=== PATIENT | female | born 1985 | race Caucasian/White ===

== ENCOUNTER 2021-12-05 11:11 | Emergency (ER) | payer OTHER ==
[~2021-12-05] VITALS: Ht 154.9 cm; Wt 82.4 kg
[2021-12-05 11:32] LABS: BASOPHILS # (AUTO) 0.1 10^3/uL (0.0-0.1); BASOPHILS % (AUTO) 0 % (0-10); EOSINOPHILS # (AUTO) 0.3 10^3/uL (0.0-0.3); EOSINOPHILS % (AUTO) 3 % (0-10); HEMATOCRIT 43 % (35-52); HEMOGLOBIN 14.5 g/dL (11.5-16.0); LYMPHOCYTES # (AUTO) 3.4 10^3/uL (1.0-4.0); LYMPHOCYTES % (AUTO) 26 % (12-44); MEAN CORPUSCULAR HEMOGLOBIN 29 pg (25-34); MEAN CORPUSCULAR HGB CONC 34 g/dL (32-36); MEAN CORPUSCULAR VOLUME 86 fL (80-99); MONOCYTES # (AUTO) 0.5 10^3/uL (0.0-1.0); MONOCYTES % (AUTO) 4 % (0-12); NEUTROPHILS # (AUTO) 8.5 10^3/uL (1.8-7.8); NEUTROPHILS % (AUTO) 66 % (42-75); PLATELET COUNT 351 10^3/uL (130-400); WHITE BLOOD COUNT 12.8 10^3/uL (4.3-11.0)
[2021-12-05 11:38] LABS: BILIRUBIN,URINE NEGATIVE (NEGATIVE); CLARITY,URINE SL CLOUDY; COLOR,URINE YELLOW; GLUCOSE, URINE (UA) NEGATIVE (NEGATIVE); KETONES,URINE NEGATIVE (NEGATIVE); LEUKOCYTE ESTERASE ,URINE NEGATIVE (NEGATIVE); NITRITE,URINE NEGATIVE (NEGATIVE); PROTEIN,URINE NEGATIVE (NEGATIVE)
[2021-12-05 11:50] LABS: BACTERIA,URINE FEW /HPF; RBC,URINE >100 /HPF
[2021-12-05 12:05] LABS: ALANINE AMINOTRANSFERASE 24 U/L (0-55); ALBUMIN 4.8 GM/DL (3.2-4.5); ALKALINE PHOSPHATASE 68 U/L (40-136); BILIRUBIN,TOTAL 0.3 MG/DL (0.1-1.0); BUN/CREATININE RATIO 22; CALCIUM 9.9 MG/DL (8.5-10.1); CARBON DIOXIDE 23 MMOL/L (21-32); CHLORIDE 101 MMOL/L (98-107); CREATININE SERUM 0.69 MG/DL (0.60-1.30); GFR ESTIMATED 117; GLUCOSE 103 MG/DL (70-105); POTASSIUM 4.1 MMOL/L (3.6-5.0); SODIUM 136 MMOL/L (135-145)
[2021-12-05 12:29] LABS: LIPASE 17 U/L (8-78)
[2021-12-05] MEDS ORDERED: NS IV 1000 ML 1,000 ML IV STA (12:38)
[2021-12-05] MEDS ORDERED: KETOROLAC 30 MG/ML VIAL IVP STA (12:38)
[2021-12-05] MEDS ORDERED: ONDANSETRON 4 MG/2 ML (SDV) Z0FRAN IVP STA (12:38)
--- NOTE | 2021-12-05 12:43 | ED Back Pain ---
General Chief Complaint: Back Problems Stated Complaint: LT FLANK PAIN; FEVER; NAUSEA Source of Information: Patient History of Present Illness Date Seen by Provider: December 05, 2021 Time Seen by Provider: 12:16 Initial Comments 36 yo female presents with left flank pain that has been coming and going for her in last few days. This am woke up with severe pain in her flank and felt like when she had a kidney stone. She notes that she has had kidney stones in the past but is never followed up to have them taken care of. She has had intermittent pain at times on the left side and thought that it was still the sa nm stone. She is unsure if she has passed any stones since she was first diagnosed with a kidney stone. She denies any fever, chills, pain with urination, shortness of breath. She had her normal menstrual cycle 1 to 2 weeks ago. She recently started a new job about 3 weeks ago and has been on her feet so she has been having some back pain and issues anyway. Timing/Duration: 4-6 Hours Severity: Severe Pain/Injury Location: Back (left flank wrapping around to LLQ) Radiation: Other (left flank wrapping around to LLQ) Associated Symptoms: No muscle spasms, No fever, No weakness, No numbness in legs/feet, No tingling in legs/feet, No sensory/motor loss; lower back pain (left flank); No loss of bladder control, No loss of bowel control Allergies and Home Medications Allergies Coded Allergies: Penicillins (Verified Allergy, Unknown, 12/05/21) Patient Home Medication List Home Medication List Reviewed: Yes Hydrocodone/Acetaminophen (Hydrocodone-Acetamin 5-325 mg) 5 Mg-325 Mg Tablet, 1 TAB PO Q6H PRN for PAIN-SEVERE (8-10) Prescribed by: JADE CHAMPION on 12/05/21 1452 Ondansetron (Ondansetron Odt) 4 Mg Tab.rapdis, 4 MG PO Q6H PRN for NAUSEA/VOMIT ING Prescribed by: JADE CHAMPION on 12/05/21 1451 Review of Systems Constitutional: No chills, No fever EENTM: no symptoms reported Respiratory: no symptoms reported Cardiovascular: no symptoms reported Gastrointestinal: see HPI Genitourinary: see HPI Musculoskeletal: see HPI Skin: no symptoms reported Psychiatric/Neurological: No Symptoms Reported Past Saelvco-Shwgij-Mdcsyt Hx Patient Social History Tobacco Use?: Yes Tobacco type used: Cigarettes Smoking Status: Current Everyday Smoker Use of E-Cig and/or Vaping dev: No Substance use?: Yes Substance type: Marijuana Substance frequency: Couple times a week Alcohol Use?: No Immunizations Up To Date COVID19 Vaccine Senior Linux Administrator: Moderncarlos Past Medical History Surgery/Hospitalization HX: IBS, Kidney stones Last Menstrual Period: Dec 01, 2021 Physical Exam Vital Signs Vital Signs - First Documented 12/05/21 12/05/21 11:39 15:02 Temp 36.8 Pulse 83 Resp 14 B/P (MAP) 129/71 (90) Pulse Ox 100 O2 Delivery Room Air Capillary Refill : Less Than 3 Seconds Height, Weight, BMI Height: '" Weight: lbs. oz. kg; 34.00 BMI Method: General Appearance: No Apparent Distress, WD/WN HEENT: PERRL/EOMI, Pharynx Normal Neck: Full Range of Motion, Supple Cardiovascular: Regular Rate, Rhythm, Normal Peripheral Pulses Respiratory: Chest Non Tender, Lungs Clear, Normal Breath Sounds, No Accessory Muscle Use, No Respiratory Distress Gastrointestinal: Normal Bowel Sounds, No Pulsatile Mass, Soft; No Distended, No Guarding, No Rebound; Tenderness (left flank wrapping around to LLQ) Back: CVA Tenderness (L) Extremity: Normal Capillary Refill, Normal Inspection, No Pedal Edema Neurologic/Psychiatric: Alert, Oriented x3, health science instructor II-XII Norm as Tested Skin: Normal Color, Warm/Dry Progress/Results/Core Measures Results/Orders Lab Results Laboratory Tests Test 12/05/21 11:15 12/05/21 11:22 Range/Units Urine Color YELLOW Urine Clarity SL CLOUDY Urine pH 6.0 5-9 Urine Specific [place] 1.025 H 1.016-1.022 Urine Protein NEGATIVE NEGATIVE Urine Glucose (UA) NEGATIVE NEGATIVE Urine Ketones NEGATIVE NEGATIVE Urine Nitrite NEGATIVE NEGATIVE Urine Bilirubin NEGATIVE NEGATIVE Urine Urobilinogen 0.2 < = 1.0 MG/DL Urine Leukocyte Esterase NEGATIVE NEGATIVE Urine RBC (Auto) 2+ H NEGATIVE Urine RBC >100 H /HPF Urine WBC 2-5 /HPF Urine Squamous Epithelial Cells 10-25 H /HPF Urine Crystals NONE /LPF Urine Bacteria FEW H /HPF Urine Casts NONE /LPF Urine Mucus SMALL H /LPF Urine Culture Indicated NO White Blood Count 12.8 H 4.3-11.0 10^3/uL Red Blood Count 5.01 3.80-5.11 10^6/uL Hemoglobin 14.5 11.5-16.0 g/dL Hematocrit 43 35-52 % Mean Corpuscular Volume 86 80-99 fL Mean Corpuscular Hemoglobin 29 25-34 pg Mean Corpuscular Hemoglobin Concent 34 32-36 g/dL Red Cell Distribution Width 13.3 10.0-14.5 % Platelet Count 351 130-400 10^3/uL Mean Platelet Volume 9.0 9.0-12.2 fL Immature Granulocyte % (Auto) 0 % Neutrophils (%) (Auto) 66 42-75 % Lymphocytes (%) (Auto) 26 12-44 % Monocytes (%) (Auto) 4 0-12 % Eosinophils (%) (Auto) 3 0-10 % Basophils (%) (Auto) 0 0-10 % Neutrophils # (Auto) 8.5 H 1.8-7.8 10^3/uL Lymphocytes # (Auto) 3.4 1.0-4.0 10^3/uL Monocytes # (Auto) 0.5 0.0-1.0 10^3/uL Eosinophils # (Auto) 0.3 0.0-0.3 10^3/uL Basophils # (Auto) 0.1 0.0-0.1 10^3/uL Immature Granulocyte # (Auto) 0.1 0.0-0.1 10^3/uL Sodium Level 136 135-145 MMOL/L Potassium Level 4.1 3.6-5.0 MMOL/L Chloride Level 101 98-107 MMOL/L Carbon Dioxide Level 23 21-32 MMOL/L Anion Gap 12 5-14 MMOL/L Blood Urea Nitrogen 15 7-18 MG/DL Creatinine 0.69 0.60-1.30 MG/DL Estimat Glomerular Filtration Rate 117 BUN/Creatinine Ratio 22 Glucose Level 103 70-105 MG/DL Calcium Level 9.9 8.5-10.1 MG/DL Corrected Calcium 8.5-10.1 MG/DL Total Bilirubin 0.3 0.1-1.0 MG/DL Aspartate Amino Transf (AST/SGOT) 21 5-34 U/L Alanine Aminotransferase (ALT/SGPT) 24 0-55 U/L Alkaline Phosphatase 68 40-136 U/L Total Protein 8.0 6.4-8.2 GM/DL Albumin 4.8 H 3.2-4.5 GM/DL Lipase 17 8-78 U/L My Orders Orders - JADE CHAMPION MD Comprehensive Metabolic Panel (12/05/21 11:14) Lipase (12/05/21 11:14) Ua Culture If Indicated (12/05/21 11:14) Ed Iv/Invasive Line Start (12/05/21 11:14) Cbc With Automated Diff (12/05/21 11:14) Urine Bedside (12/05/21 11:14) Ns Iv 1000 Ml (Sodium Chloride 0.9%) (12/05/21 12:38) Ketorolac Injection (Toradol Injection) (12/05/21 12:38) Ondansetron Injection (Zofran Injectio (12/05/21 12:38) Ct Abd/Pelvis Wo(Kidney Stone) (12/05/21 12:41) Vital Signs/I&O 12/05/21 12/05/21 11:39 15:02 Temp 36.8 Pulse 83 92 Resp 14 17 B/P (MAP) 129/71 (90) 145/90 Pulse Ox 100 O2 Delivery Room Air Room Air Blood Pressure Mean: 90 Progress Progress Note #1: Progress Note Obtain urinalysis along with basic labs. The urinalysis did demonstrate increased blood in the urine without definite signs of infection. We will add on a CT scan of the abdomen pelvis without contrast to evaluate for kidney stones. Give normal saline 1 L IV bolus for hydration, Toradol 30 mg IV for pain, Zofran 4 mg IV for nausea Progress Note #2: Progress Note CBC and chemistry appear stable without acute significant abnormality. The CT scan shows a 1 cm or 10 mm kidney stone sending at the ureteropelvic junction of the left kidney. There is mild to moderate hydronephrosis. There were no other kidney stone seen. Will prescribe medicine for pain and nausea and give patient information for urology as she will need to schedule lithotripsy or surgery to have the kidney stone removed or broken up. Diagnostic Imaging Diagonstic Imaging: CT Plain Films/CT/US/NM/MRI: abdomen, pelvis Comments NAME: FEDERICO SHAHID REC#: [id number] PT STATUS: REG ER : 1985 PHYSICIAN: JADE CHAMPION MD ADMIT DATE: 12/05/21/ER FS Draft Date of Exam:12/05/21 CT ABD/PELVIS WO(KIDNEY STONE) PROCEDURE: CT urinary tract, rule out kidney stone. TECHNIQUE: Multiple contiguous axial images were obtained through the abdomen and pelvis without the use of intravenous contrast. Auto Exposure Controls were utilized during the CT exam to meet ALARA standards for radiation dose reduction. INDICATION: Left flank pain. Hematuria. History of kidney stones. COMPARISON: None. FINDINGS: Calcified granuloma in the left lower lobe. Cholecystectomy. The liver, pancreas, spleen, adrenals, right kidney, right ureter, decompressed bladder and appendix are negative on this noncontrast exam. Reproductive structures are grossly unremarkable. 1.0 cm renal stone in the left ureteropelvic junction results in nhzxnsfx-nl-ahelyp left hydronephrosis. No other renal stones. No free intraperitoneal air or fluid. No lymphadenopathy. No evidence of bowel obstruction. No acute osseous findings. IMPRESSION: 1.0 cm obstructing renal stone in the left ureteropelvic junction resulting in gllyqoge-xr-yldlwc left hydronephrosis. Dictated on workstation # [id number] Dict: 12/05/21 1303 Trans: 12/05/21 1311 [id number] [id number] Interpreted by: AURORA MORALES MD Electronically signed by: Reviewed: Reviewed by Me Departure Impression Primary Impression: Renal colic on left side Additional Impressions: Kidney stone on left side Calculus of proximal left ureter Disposition: 01 HOME, SELF-CARE Condition: Stable Departure-Patient Inst. Decision time for Depature: 14:50 Referrals: RADHAMES PENNINGTON MD (PCP) Primary Care Physician REMI MCKEE MD Patient Instructions: Flank Pain ED, Kidney Stone, Adult ED, How to Strain Your Urine, Kidney Stone Diet Add. Discharge Instructions: Patient to strain your urine in case the stone does move. Drink plenty of water and stay well-hydrated. Call urology to set up an appointment as you will need to have the kidney stone broken up or surgically removed. All discharge instructions reviewed with patient and/or family. Voiced understanding. Scripts Hydrocodone/Acetaminophen (Hydrocodone-Acetamin 5-325 mg) 5 Mg-325 Mg Tablet 1 TAB PO Q6H PRN for PAIN-SEVERE (8-10) for 5 Days, #20 TAB 0 Refills Prov: JADE CHAMPION MD 12/05/21 Ondansetron (Ondansetron Odt) 4 Mg Tab.rapdis 4 MG PO Q6H PRN for NAUSEA/VOMITING for 5 Days, #20 TAB 0 Refills Prov: JADE CHAMPION MD 12/05/21 Work/School Note: Work Release Form Date Seen in the Emergency Department: December 05, 2021 Return to Work: December 06, 2021 Restrictions: No Restrictions JADE CHAMPION MD December 05, 2021 12:43
--- NOTE | 2021-12-05 13:12 | Diagnostic Imaging Report ---
PROCEDURE: CT urinary tract, rule out kidney stone. TECHNIQUE: Multiple contiguous axial images were obtained through the abdomen and pelvis without the use of intravenous contrast. Auto Exposure Controls were utilized during the CT exam to meet ALARA standards for radiation dose reduction. INDICATION: Left flank pain. Hematuria. History of kidney stones. COMPARISON: None. FINDINGS: Calcified granuloma in the left lower lobe. Cholecystectomy. The liver, pancreas, spleen, adrenals, right kidney, right ureter, decompressed bladder and appendix are negative on this noncontrast exam. Reproductive structures are grossly unremarkable. 1.0 cm renal stone in the left ureteropelvic junction results in sfsytaif-nn-kjnnmc left hydronephrosis. No other renal stones. No free intraperitoneal air or fluid. No lymphadenopathy. No evidence of bowel obstruction. No acute osseous findings. IMPRESSION: 1.0 cm obstructing renal stone in the left ureteropelvic junction resulting in qmmkmtzr-ql-tejuly left hydronephrosis. Dictated by: Dictated on workstation # [id number]
[2021-12-05] MEDS ORDERED: ACHD5005 PO (14:51)
[2021-12-05] MEDS ORDERED: ONDA4TAB11 PO (14:51)
[2021-12-05 15:02] VITALS: BP 145/90
== END 2021-12-05 15:02 | disposition home or self-care (01) ==
LOC: ER FS 11:12
DX: N13.2 Hydronephrosis with renal and ureteral calculous obstruction (principal); F17.210 Nicotine dependence, cigarettes, uncomplicated
CPT/HCPCS: 36415; 74176; 80053; 81000; 83690; 84703; 85025

== ENCOUNTER 2022-01-01 08:12 | Emergency (ER) | payer OTHER ==
[~2022-01-01] VITALS: Ht 154 cm; Wt 82.0 kg
[~2022-01-01 08:12] MED LIST: ACHD5005 PO; ONDA4TAB11 PO
[2022-01-01] MEDS ORDERED: ONDANSETRON 4 MG/2 ML (SDV) Z0FRAN IVP STA (08:16)
[2022-01-01] MEDS ORDERED: KETOROLAC 30 MG/ML VIAL IVP STA (08:16)
[2022-01-01] MEDS ORDERED: NS IV 1000 ML 1,000 ML IV STA (08:16)
--- NOTE | 2022-01-01 08:31 | ED General ---
General Chief Complaint: - Reproductive Stated Complaint: LT FLANK PAIN; VOMITING Source of Information: Patient, Old Records Exam Limitations: No Limitations History of Present Illness Date Seen by Provider: January 01, 2022 Time Seen by Provider: 08:16 Initial Comments 36-year-old female presenting with complaints of left flank pain. She has had a kidney stone that has been giving her pain off and on since the beginning of the year. She states that she had blood doing some yard work this weekend but then had sudden onset of severe left flank pain last night. She has had at least 3 episodes of vomiting overnight. She had subjective fever and chills. She has an appointment to see Bree Sandoval at the [facility] clinic next week to establish care but has not followed up with urology since she was seen here approximately a month ago for her kidney stone pain. She denies pain or burning with urination. She has had no diarrhea or change in her bowels. She states that she just finished her menstrual cycle yesterday. Timing/Duration: 12-24 Hours Severity: Severe Associated Systoms: No Chest Pain, No Cough, No Diaphoresis; Fever/Chills (subjective); No Headaches, No Loss of Appetite, No Malaise; Nausea/Vomiting; No Rash, No Seizure, No Shortness of Air, No Syncope, No Weakness Allergies and Home Medications Allergies Coded Allergies: Penicillins (Verified Allergy, Unknown, 12/05/21) Patient Home Medication List Home Medication List Reviewed: Yes Hydrocodone/Acetaminophen (Hydrocodone-Acetamin 10-325 mg) 10 Mg-325 Mg Tablet, 1 EACH PO Q6H PRN for PAIN-SEVERE (8-10) Prescribed by: JADE CHAMPION on 01/01/22 0931 Ondansetron (Ondansetron Odt) 4 Mg Tab.rapdis, 4 MG PO Q6H PRN for NAUSEA/VOMITING Prescribed by: JADE MARTIYART on 12/05/21 1451 Discontinued Medications Hydrocodone/Acetaminophen (Hydrocodone-Acetamin 5-325 mg) 5 Mg-325 Mg Tablet, 1 TAB PO Q6H PRN for PAIN-SEVERE (8-10) Prescribed by: JADE MARTIYART on 12/05/21 1452 Review of Systems Review of Systems Constitutional: see HPI EENTM: no symptoms reported Respiratory: no symptoms reported Cardiovascular: no symptoms reported Gastrointestinal: see HPI Genitourinary: see HPI, pain (left flank) Musculoskeletal: no symptoms reported Skin: No rash Psychiatric/Neurological: Denies Headache Hematologic/Lymphatic: No Symptoms Reported Immunological/Allergic: no symptoms reported Past Ksjaxwf-Ectznf-Mklezb Hx Past Medical History Surgery/Hospitalization HX: IBS, Kidney stones, History of prior IV drug abuse Physical Exam Vital Signs Vital Signs - First Documented 01/01/22 08:34 Temp 36.4 Pulse 81 Resp 16 B/P (MAP) 133/85 (101) Pulse Ox 98 Capillary Refill : Height, Weight, BMI Height: '" Weight: lbs. oz. kg; 34.00 BMI Method: General Appearance: No Apparent Distress, WD/WN HEENT: PERRL/EOMI, Pharynx Normal, Moist Mucous Membranes Neck: Full Range of Motion, Normal Inspection, Non Tender, Supple Respiratory: Chest Non Tender, Lungs Clear, Normal Breath Sounds, No Accessory Muscle Use, No Respiratory Distress Cardiovascular: Regular Rate, Rhythm, Normal Peripheral Pulses Gastrointestinal: Normal Bowel Sounds, No Pulsatile Mass, Soft; No Distended, No Guarding, No Rebound; Tenderness (Left flank) Rectal: Deferred Back: No CVA Tenderness Extremity: Normal Capillary Refill, Normal Inspection, No Calf Tenderness, No P edal Edema Neurologic/Psychiatric: Alert, Oriented x3, field marketing associate II-XII Norm as Tested Skin: Normal Color, Warm/Dry Progress/Results/Core Measures Suspected Sepsis SIRS Temperature: Pulse: Respiratory Rate: Laboratory Tests 01/01/22 08:20: White Blood Count 14.9H Blood Pressure / Mean: Laboratory Tests 01/01/22 08:20: Creatinine 0.92, Platelet Count 360, Total Bilirubin 0.2 Results/Orders Lab Results Laboratory Tests Test 01/01/22 08:20 01/01/22 08:30 Range/Units White Blood Count 14.9 H 4.3-11.0 10^3/uL Red Blood Count 4.88 3.80-5.11 10^6/uL Hemoglobin 14.1 11.5-16.0 g/dL Hematocrit 42 35-52 % Mean Corpuscular Volume 86 80-99 fL Mean Corpuscular Hemoglobin 29 25-34 pg Mean Corpuscular Hemoglobin Concent 34 32-36 g/dL Red Cell Distribution Width 13.3 10.0-14.5 % Platelet Count 360 130-400 10^3/uL Mean Platelet Volume 9.6 9.0-12.2 fL Immature Granulocyte % (Auto) 0 % Neutrophils (%) (Auto) 80 H 42-75 % Lymphocytes (%) (Auto) 12 12-44 % Monocytes (%) (Auto) 6 0-12 % Eosinophils (%) (Auto) 1 0-10 % Basophils (%) (Auto) 0 0-10 % Neutrophils # (Auto) 11.9 H 1.8-7.8 10^3/uL Lymphocytes # (Auto) 1.8 1.0-4.0 10^3/uL Monocytes # (Auto) 0.9 0.0-1.0 10^3/uL Eosinophils # (Auto) 0.2 0.0-0.3 10^3/uL Basophils # (Auto) 0.1 0.0-0.1 10^3/uL Immature Granulocyte # (Auto) 0.1 0.0-0.1 10^3/uL Neutrophils % (Manual) 71 % Lymphocytes % (Manual) 15 % Monocytes % (Manual) 4 % Eosinophils % (Manual) 3 % Basophils % (Manual) 1 % Band Neutrophils 2 % Atypical Lymphocytes 1 % Reactive Lymphocytes 3 % Platelet Estimate NORMAL Blood Morphology Comment NORMAL Sodium Level 139 135-145 MMOL/L Potassium Level 4.4 3.6-5.0 MMOL/L Chloride Level 104 98-107 MMOL/L Carbon Dioxide Level 22 21-32 MMOL/L Anion Gap 13 5-14 MMOL/L Blood Urea Nitrogen 16 7-18 MG/DL Creatinine 0.92 0.60-1.30 MG/DL Estimat Glomerular Filtration Rate 84 BUN/Creatinine Ratio 17 Glucose Level 108 H 70-105 MG/DL Calcium Level 9.5 8.5-10.1 MG/DL Corrected Calcium 9.3 8.5-10.1 MG/DL Total Bilirubin 0.2 0.1-1.0 MG/DL Aspartate Amino Transf (AST/SGOT) 15 5-34 U/L Alanine Aminotransferase (ALT/SGPT) 16 0-55 U/L Alkaline Phosphatase 64 40-136 U/L Total Protein 7.0 6.4-8.2 GM/DL Albumin 4.3 3.2-4.5 GM/DL Urine Color YELLOW Urine Clarity SL CLOUDY Urine pH 6.0 5-9 Urine Specific [place] >=1.030 1.016-1.022 Urine Protein NEGATIVE NEGATIVE Urine Glucose (UA) NEGATIVE NEGATIVE Urine Ketones NEGATIVE NEGATIVE Urine Nitrite NEGATIVE NEGATIVE Urine Bilirubin NEGATIVE NEGATIVE Urine Urobilinogen 0.2 < = 1.0 MG/DL Urine Leukocyte Esterase NEGATIVE NEGATIVE Urine RBC (Auto) 1+ H NEGATIVE Urine RBC 2-5 H /HPF Urine WBC RARE /HPF Urine Squamous Epithelial Cells 10-25 H /HPF Urine Crystals NONE /LPF Urine Bacteria FEW H /HPF Urine Casts NONE /LPF Urine Mucus SMALL H /LPF Urine Culture Indicated NO My Orders Orders - JADE CHAMPION MD Comprehensive Metabolic Panel (01/01/22 08:16) Ua Culture If Indicated (01/01/22 08:16) Ed Iv/Invasive Line Start (01/01/22 08:16) Cbc With Automated Diff (01/01/22 08:16) Ct Abdomen/Pelvis Wo (01/01/22 08:16) Urine Bedside (01/01/22 08:16) Ns Iv 1000 Ml (Sodium Chloride 0.9%) (01/01/22 08:16) Ketorolac Injection (Toradol Injection) (01/01/22 08:16) Ondansetron Injection (Zofran Injectio (01/01/22 08:16) Drug Screen Stat (Urine) (01/01/22 09:01) Manual Differential (01/01/22 08:20) Fentanyl Inj (Sublimaze Injection) (01/01/22 09:05) Hydrocodone/Apap 5/325 Tablet (Lortab 5 (01/01/22 09:21) Vital Signs/I&O 01/01/22 08:34 Temp 36.4 Pulse 81 Resp 16 B/P (MAP) 133/85 (101) Pulse Ox 98 Capillary Refill : Progress Note #1: Progress Note Obtain urine and check urine as well as urinalysis. Check basic labs and give IV fluids for hydration along with Zofran for nausea and vomiting, Toradol for pain. CT scan to evaluate for recurrent kidney stone and see if there is obstruction or blockage or if she has other findings that could be causing her pain such as diverticulitis, colitis, ovarian cyst. Progress Note #2: Progress Note Labs shows elevated white blood cell count 14.9 consistent with stress and pain. She has some dehydration with elevated specific gravity of greater than 1.030 on her urinalysis. She does not have findings for UTI on her urinalysis. Her chemistry panel shows her creatinine 0.92. Urine drug screen is positive only for the opiates that she has been prescribed, tricyclic's and marijuana that she admits to using. On the CT scan she still has a 1 cm kidney stone in the left proximal ureter. There are some increased stranding around the left kidney. She was still having pain after the Toradol so a dose of fentanyl was given and fluids were continued to infuse. We will start her on oral pain medicine and refill her oral pain medicine but stressed to her again that she needs to get in with the surgeon to have urology manage her kidney stone. If the kidney stone is not removed she could potentially have damage to her kidney that is not reversible. Diagnostic Imaging Diagonstic Imaging: CT Plain Films/CT/US/NM/MRI: abdomen, pelvis Comments [facility] [place], [place] NAME: [facility] REC#: [id number] PT STATUS: REG ER : 1985 PHYSICIAN: JADE CHAMPION MD ADMIT DATE: 01/01/22/ER FS Signed Date of Exam:01/01/22 CT ABDOMEN/PELVIS WO PROCEDURE: CT abdomen and pelvis without contrast. TECHNIQUE: Multiple contiguous axial images were obtained through the abdomen and pelvis without the use of intravenous contrast. Auto Exposure Controls were utilized during the CT exam to meet ALARA standards for radiation dose reduction. INDICATION: Flank pain with nausea and emesis. COMPARISON: 12/05/2021. FINDINGS: Unenhanced images of the liver and spleen are stable and unremarkable. The gallbladder is surgically absent. A calcified granuloma is seen in the lower lobe of the left lung. There is no evidence of adrenal gland, pancreatic, or right renal abnormality. Similar to the previous study, there is moderate left hydronephrosis with an approximately 1 cm calculus at the left ureteropelvic junction. There has been an increase in the left perinephric edema and/or inflammation. There is no evidence of free fluid. A large amount of stool distends the right colon. No definite free fluid is identified. There is no evidence of pathologically enlarged adenopathy. No bladder stone is identified. IMPRESSION: Further increase in the left perinephric edema and inflammation with moderate left hydronephrosis secondary to 1 cm obstructing left ureteropelvic junction calculus. Calyceal rupture in the left kidney is not excluded. Dictated by: Dictated on workstation # [id number] Dict: 01/01/22 0853 Trans: 01/01/22906 [id number] Interpreted by: ROSELINE SHAH MD Electronically signed by: ROSELINE SHAH MD 01/01/22906 Departure Impression Primary Impression: Renal colic on left side Additional Impressions: Kidney stone on left side Calculus of proximal left ureter Disposition: HOME, SELF-CARE Condition: Stable Departure-Patient Inst. Decision time for Depature: 09:32 Referrals: BREE SANDOVAL MD (PCP) Primary Care Physician REMI MCKEE MD Patient Instructions: Flank Pain ED, Kidney Stone, Adult ED, Kidney Stone Diet Add. Discharge Instructions: Your kidney stone is measuring 1 cm which is 10 mm in size. This is just under 1/2 inch. It is causing some blockage to the left kidney so that very little urine is able to pass the stone. The longer this continues the more likely you can have group home damage to your kidney. At this size of a kidney stone without the urologist performing some sort of procedure to break up the stone and help it pass, it will not move on its own. You will have to follow up with Urology to have help getting the kidney stone removed from your Ureter (the tube that drains urine from your kidney down to your bladder) Take the nausea medicine to help keep your stomach settled and try to stay well hydrated. Avoid carbonated and caffeinated drinks as they can contribute to more stones forming. Check with the clinic to see if they can help refer you to Urology or you might even try calling Dr. Mckee's office directly and set up an appointment. Then the two medical offices, Dr. Sandoval's and Dr. Mckee's, can work together to make sure your kidney stone is taken care of and work with insurance on the management of your stone. All discharge instructions reviewed with patient and/or family. Voiced understanding. Scripts Hydrocodone/Acetaminophen (Hydrocodone-Acetamin 10-325 mg) 10 Mg-325 Mg Tablet 1 EACH PO Q6H PRN for PAIN-SEVERE (8-10) for 5 Days, #20 TAB 0 Refills 1/2 to 1 pill every 6 hours as needed for severe pain from kidney stone Prov: JADE CHAMPION MD 01/01/22 Work/School Note: Work Release Form Date Seen in the Emergency Department: January 01, 2022 Return to Work: Jan 02, 2022 Restrictions: Return-No Vomiting(24hrs) Copy Copies To 1: REMI MCKEE MD, MARC E MD January 01, 2022 08:30
[2022-01-01 08:33] LABS: BILIRUBIN,URINE NEGATIVE (NEGATIVE); CLARITY,URINE SL CLOUDY; COLOR,URINE YELLOW; GLUCOSE, URINE (UA) NEGATIVE (NEGATIVE); KETONES,URINE NEGATIVE (NEGATIVE); LEUKOCYTE ESTERASE ,URINE NEGATIVE (NEGATIVE); NITRITE,URINE NEGATIVE (NEGATIVE); PROTEIN,URINE NEGATIVE (NEGATIVE)
[2022-01-01 08:36] LABS: BASOPHILS # (AUTO) 0.1 10^3/uL (0.0-0.1); BASOPHILS % (AUTO) 0 % (0-10); EOSINOPHILS # (AUTO) 0.2 10^3/uL (0.0-0.3); EOSINOPHILS % (AUTO) 1 % (0-10); HEMATOCRIT 42 % (35-52); HEMOGLOBIN 14.1 g/dL (11.5-16.0); LYMPHOCYTES # (AUTO) 1.8 10^3/uL (1.0-4.0); LYMPHOCYTES % (AUTO) 12 % (12-44); MEAN CORPUSCULAR HEMOGLOBIN 29 pg (25-34); MEAN CORPUSCULAR HGB CONC 34 g/dL (32-36); MEAN CORPUSCULAR VOLUME 86 fL (80-99); MEAN PLATELET VOLUME 9.6 fL (9.0-12.2); MONOCYTES # (AUTO) 0.9 10^3/uL (0.0-1.0); MONOCYTES % (AUTO) 6 % (0-12); NEUTROPHILS # (AUTO) 11.9 10^3/uL (1.8-7.8); NEUTROPHILS % (AUTO) 80 % (42-75); PLATELET COUNT 360 10^3/uL (130-400); WHITE BLOOD COUNT 14.9 10^3/uL (4.3-11.0)
[2022-01-01 09:04] LABS: BACTERIA,URINE FEW /HPF; WBC,URINE RARE /HPF
[2022-01-01] MEDS ORDERED: fentaNYL INJ 100 MCG/2 ML AMP IVP STA (09:05)
--- NOTE | 2022-01-01 09:05 | Diagnostic Imaging Report ---
PROCEDURE: CT abdomen and pelvis without contrast. TECHNIQUE: Multiple contiguous axial images were obtained through the abdomen and pelvis without the use of intravenous contrast. Auto Exposure Controls were utilized during the CT exam to meet ALARA standards for radiation dose reduction. INDICATION: Flank pain with nausea and emesis. COMPARISON: 12/05/2021. FINDINGS: Unenhanced images of the liver and spleen are stable and unremarkable. The gallbladder is surgically absent. A calcified granuloma is seen in the lower lobe of the left lung. There is no evidence of adrenal gland, pancreatic, or right renal abnormality. Similar to the previous study, there is moderate left hydronephrosis with an approximately 1 cm calculus at the left ureteropelvic junction. There has been an increase in the left perinephric edema and/or inflammation. There is no evidence of free fluid. A large amount of stool distends the right colon. No definite free fluid is identified. There is no evidence of pathologically enlarged adenopathy. No bladder stone is identified. IMPRESSION: Further increase in the left perinephric edema and inflammation with moderate left hydronephrosis secondary to 1 cm obstructing left ureteropelvic junction calculus. Calyceal rupture in the left kidney is not excluded. Dictated by: Dictated on workstation # [id number]
[2022-01-01 09:09] LABS: ALBUMIN 4.3 GM/DL (3.2-4.5); BILIRUBIN,TOTAL 0.2 MG/DL (0.1-1.0); CALCIUM 9.5 MG/DL (8.5-10.1); CREATININE SERUM 0.92 MG/DL (0.60-1.30); POTASSIUM 4.4 MMOL/L (3.6-5.0)
[2022-01-01] MEDS ORDERED: HYDROcodone/APAP 5 MG/325 MG (LORTAB) TAB PO STA (09:21)
[2022-01-01 09:30] LABS: ATYPICAL LYMPHOCYTES 1 %; BAND NEUTROPHILS 2 %; BASOPHILS % (MANUAL) 1 %; EOSINOPHILS % (MANUAL) 3 %; LYMPHOCYTES % (MANUAL) 15 %; MONOCYTES % (MANUAL) 4 %; NEUTROPHILS % (MANUAL) 71 %; PLATELET ESTIMATE NORMAL; RBC MORPH NORMAL; REACTIVE LYMPHOCYTES 3 %
[2022-01-01] MEDS ORDERED: HYDR-3820 PO (09:30)
[2022-01-01 09:44] LABS: AMPHETAMINE SCREEN, URINE NEGATIVE (NEGATIVE); BARBITURATE SCREEN URINE NEGATIVE (NEGATIVE); BENZODIAZEPINES SCREEN URINE NEGATIVE (NEGATIVE); CANNABINOID SCREEN, URINE POSITIVE (NEGATIVE); COCAINE SCREEN URINE NEGATIVE (NEGATIVE); METHADONE STAT NEGATIVE (NEGATIVE); OPIATE SCREEN URINE POSITIVE (NEGATIVE); OXYCODONE STAT NEGATIVE (NEGATIVE); PROPOXYPHENE STAT NEGATIVE (NEGATIVE); TRICYCLIC ANTIDEPRESSANTS SCRE POSITIVE (NEGATIVE)
[2022-01-01 09:45] VITALS: BP 97/64
== END 2022-01-01 09:40 | disposition home or self-care (01) ==
LOC: EDUNIT# 08:12 → ER FS 08:13
DX: N13.2 Hydronephrosis with renal and ureteral calculous obstruction (principal)
CPT/HCPCS: 36415; 74176; 80053; 80306; 81000; 84703; 85007; 85027

== ENCOUNTER → 2022-01-14 | Outpatient (CLI) | payer OTHER ==
[~2022-01-14] MED LIST changes: +AMIT25TA9 PO; +CEPH500C PO; +CETI10TA17 PO; +CHRO200T13 PO; +CYAN50009 PO; +CYCL10TA25 PO; +HYDR-3820 PO; +KETO10TA PO; +NITR-65 PO; +TMSL.4C PO
--- NOTE | 2022-01-14 17:05 | Diagnostic Imaging Report ---
EXAMINATION: Abdomen 1 view HISTORY: Left-sided renal stone. COMPARISON: None available. FINDINGS: An 8 mm calcification projects over the proximal left ureter. The gallbladder is absent. No dilated bowel or free air. IMPRESSION: 1. Calcification projecting over the proximal left ureter measuring 8 mm. Dictated by: Dictated on workstation # [id number]
== END ==
LOC: RAD 13:51
PROVIDERS: ATTEND Urology
DX: N20.2 Calculus of kidney with calculus of ureter (principal)
CPT/HCPCS: 74018

== ENCOUNTER → 2022-01-14 | Outpatient (CLI) | payer OTHER | END | disposition home or self-care (01) | LOC: PREOP 15:46 | PROVIDERS: ATTEND Urology | DX: Z01.818 Encounter for other preprocedural examination (principal) ==

== ENCOUNTER 2022-01-15 08:20 | Day surgery (SDC) | payer OTHER ==
[~2022-01-15] VITALS: Ht 154.2 cm; Wt 79.5 kg
[2022-01-15] VITALS (11 sets, daily range): BP systolic 106–126; BP diastolic 65–88
[~2022-01-15 08:20] MED LIST changes: -AMIT25TA9 PO; -CEPH500C PO; -CETI10TA17 PO; -CHRO200T13 PO; -CYAN50009 PO; -CYCL10TA25 PO; -KETO10TA PO; -NITR-65 PO; -TMSL.4C PO
--- NOTE | 2022-01-15 08:45 | Progress Note-Pre Operative ---
Pre-Operative Progress Note H&P Reviewed The H&P was reviewed, patient examined and no changes noted. Date Seen by Provider: Jan 15, 2022 Time Seen by Provider: 08:44 Date H&P Reviewed: Jan 15, 2022 Time H&P Reviewed: 08:44 Pre-Operative Diagnosis: LT RPOXIMAL URETERAL STONE REMI MCKEE MD Jan 15, 2022 08:45
[2022-01-15] MEDS ORDERED: LACTATED RINGERS 1,000 ML IV PRN ×2 (09:15→10:00)
[2022-01-15] MEDS ORDERED: TMSL.4C PO ×4 (09:23→12:06)
[2022-01-15] MEDS ORDERED: CYAN50009 PO ×2 (09:26)
[2022-01-15] MEDS ORDERED: CETI10TA17 PO ×2 (09:26)
[2022-01-15] MEDS ORDERED: CHRO200T13 PO ×2 (09:26)
[2022-01-15] MEDS ORDERED: CEPH500C PO ×2 (09:26)
[2022-01-15] MEDS ORDERED: CYCL10TA25 PO ×2 (09:26)
[2022-01-15] MEDS ORDERED: AMIT25TA9 PO ×2 (09:26)
[2022-01-15] MEDS ORDERED: LIDOCAINE PF 2% 5 ML (XYLOCAINE) VIAL ONE (09:49)
[2022-01-15] MEDS ORDERED: fentaNYL INJ 100 MCG/2 ML AMP ONE (09:49)
[2022-01-15] MEDS ORDERED: proPOfol 200 MG/20 ML (DIPRIVAN) VIAL IV ONE (09:49)
[2022-01-15] MEDS ORDERED: MIDAZOLAM 2 MG/2 ML (VERSED) VIAL ONE (09:50)
[2022-01-15] MEDS ORDERED: ONDANSETRON 4 MG/2 ML (SDV) Z0FRAN IV ONE (10:00)
[2022-01-15] MEDS ORDERED: FAMOTIDINE 20MG/2ML IV (PEPCID) IV ONE (10:00)
--- NOTE | 2022-01-15 10:18 | Discharge Inst-Urology ---
Discharge Inst-Urology Reconcile Patient Problems Problems Reviewed?: Yes Final Diagnosis LT URETERAL STONE Patient Instructions/Follow Up Plan/Assessment/Instructions Please make appointment to been seen in office Sunday 01/28, KUB prior to it. KUB on way home Post ESWL instructions Increase oral fluids for 48 hours and then as needed. Diet and Activity as tolerated. If questions or concerns contact your physician Or seek help at emergency department. REMI MCKEE MD Jan 15, 2022 10:18
--- NOTE | 2022-01-15 10:21 | Progress Note-Post Operative ---
Post-Operative Progess Note Surgeon (s)/Apron Man (s) Surgeon REMI MCKEE MD Apron Man: NONE Pre-Operative Diagnosis LT PROXIMAL URETERAL STONE Post-Operative Diagnosis SAME Procedure & Operative Findings Date of Procedure 01/15/22 Procedure Performed/Findings LT ESWL Anesthesia Type GENERAL Estimated Blood Loss Estimated blood loss (mL): NONE Specimens/Packing Specimens Removed NONE Packing: NONE REMI MCKEE MD Jan 15, 2022 10:21
[2022-01-15] MEDS ORDERED: KETOROLAC 30 MG/ML VIAL ONE (10:26)
[2022-01-15] MEDS ORDERED: FUROSEMIDE 40 MG/4 ML INJ (LASIX) ONE (10:26)
[2022-01-15] MEDS ORDERED: SEVOFLURANE (ULTANE) 15 ML INHAL SOLN ONE (10:41)
[2022-01-15] MEDS ORDERED: morphine INJ 10 MG/ML 1ML (SYR OR VIAL) IVP ONE (11:00)
[2022-01-15] MEDS ORDERED: morphine INJ 10 MG/ML 1ML (SYR OR VIAL) ONE (11:11)
[2022-01-15] MEDS ORDERED: ONDANSETRON 4 MG/2 ML (SDV) Z0FRAN ONE (11:12)
[2022-01-15] MEDS: ONDANSETRON 4 MG/2 ML (SDV) Z0FRAN IVP PRN ×2 (11:19→11:28)
[2022-01-15] MEDS ORDERED: HYDROmorphone 2 MG/ML VIAL (DILAUDID) ONE (11:26)
[2022-01-15] MEDS ORDERED: HYDROmorphone 2 MG/ML VIAL (DILAUDID) IV ONE (11:30)
--- NOTE | 2022-01-15 11:31 | Diagnostic Imaging Report ---
INDICATION: Surgery, lithotripsy, renal stones. COMPARISON: 01/14/2022 TECHNIQUE: Single radiograph of the abdomen dated 01/15/2022. FINDINGS: A 1 cm ovoid calcification overlying the expected course of the proximal left ureter is again identified, not significantly changed since the prior examination. No additional calcifications overlying the renal shadows. Phleboliths within the lower pelvis. Surgical clips overlying the right upper quadrant of the abdomen. Nonobstructive bowel gas pattern. No free air. No acute osseous abnormality. IMPRESSION: Stable 1 cm calcification overlying the proximal left ureter felt to relate to a ureterolith noted on prior imaging. Dictated by: Dictated on workstation # [id number]
[2022-01-15] MEDS ORDERED: NITR-65 PO ×2 (12:06)
[2022-01-15] MEDS ORDERED: KETO10TA PO ×2 (12:06)
--- NOTE | 2022-01-15 12:49 | Anesthesia-General Post-Op ---
General Patient Condition Mental Status/LOC: Same as Preop Cardiovascular: Satisfactory Nausea/Vomiting: Absent Respiratory: Satisfactory Pain: Controlled Complications: Absent Post Op Complications Complications None Follow Up Care/Instructions Patient Instructions None needed. Anesthesia/Patient Condition Patient Condition Patient was doing well in PACU but having pain so Morphine and Dilaudid given, stable vital signs, no apparent adverse anesthesia problems. No complications reported per nursing. ELISSA MARTÍNEZ DO Jan 15, 2022 12:49
--- NOTE | 2022-01-15 12:54 | Diagnostic Imaging Report ---
INDICATION: Status post lithotripsy. TIME OF EXAM: 12:38 p.m. COMPARISON: Correlation is made with prior abdominal radiograph from earlier the same day. FINDINGS: There appears to have been fragmentation involving the previously noted calculus in the region of the proximal left ureter. Numerous small calcific fragments at this location are now seen. No other ureteral calculi are detected. There are some calcific densities overlying the lower pole of the left kidney. There are surgical clips in the right upper quadrant. Bowel gas pattern is unremarkable. IMPRESSION: Fragmentation of the proximal left ureteric calculus when compared with exam earlier today. Dictated by: Dictated on workstation # [id number]
--- NOTE | 2022-01-15 16:54 | OPERATIVE REPORT ---
DATE OF SERVICE: 01/15/2022 PREOPERATIVE DIAGNOSIS: Left proximal ureteral stone. POSTOPERATIVE DIAGNOSIS: Left proximal ureteral stone. OPERATION PERFORMED: Left ESWL. SURGEON: Micah Mckee MD ANESTHESIA: General. COMPLICATIONS: None. DESCRIPTION OF PROCEDURE: Under satisfactory general anesthesia, the patient in supine position on the ESWL table, the left proximal ureteral stone was localized. Shocks were delivered at kV of 6. Total of 2500 shocks completely fragmented the stone. The patient received 40 mg of Lasix and 30 mg of Toradol IV at the end of the procedure. She tolerated the procedure and anesthesia well and was sent to recovery room in a stable condition. Job ID: [id number] DocumentID: [id number] Dictated Date: 01/15/2022 10:38:32 Advertising Sales Agent Date: 01/15/2022 16:52:57 Dictated By: MICAH MCKEE MD
== END 2022-01-15 12:43 | disposition home or self-care (01) ==
LOC: SDC 08:20
PROVIDERS: ATTEND Urology
DX: N20.1 Calculus of ureter (principal); F17.210 Nicotine dependence, cigarettes, uncomplicated
CPT/HCPCS: 74018; 84703; 87081

== ENCOUNTER → 2022-01-28 | Outpatient (CLI) | payer OTHER ==
[~2022-01-28] MED LIST changes: +AMIT25TA9 PO; +CEPH500C PO; +CETI10TA17 PO; +CHRO200T13 PO; +CYAN50009 PO; +CYCL10TA25 PO; +KETO10TA PO; +NITR-65 PO; +TMSL.4C PO
--- NOTE | 2022-01-28 17:44 | Diagnostic Imaging Report ---
EXAMINATION: Abdomen 1 view HISTORY: LT UPPER URETERAL STONE POST ESWL COMPARISON: 01/15/2022. FINDINGS: There is a moderate amount of gas and stool throughout the colon. Nonobstructive bowel gas pattern. No radiopaque foreign body. The lung bases are clear. The osseous structures are intact. IMPRESSION: No suspicious radiopaque calculus. Dictated by: Dictated on workstation # [id number]
== END ==
LOC: RAD 15:30
PROVIDERS: ATTEND Urology
DX: N20.1 Calculus of ureter (principal)
CPT/HCPCS: 74018